=== PATIENT | male | born 1930 | race African-American/Black ===

== ENCOUNTER 2017-10-14 20:14 | Inpatient (IN) | payer MEDICARE, MEDICAID ==
[~2017-10-14] VITALS: Ht 170.2 cm; Wt 63.5 kg
[~2017-10-14 20:14] MED LIST: ACETAMINOPHEN325 M1 ORAL; ADVAIR 250/501 PUFFS INH; ASPIR 8181 MG ORAL; ATROVENT15 M1 NS; B COMPLEX WITH1 EAC2 ORAL; CENTRAL-VITE1 EACH PO; DIFLUCAN100 MG ORAL; DUONEB 0.5-3(2.53 ML HHN; FAMOTIDINE20 MG ORAL; FERROUS SULFAT325 MG ORAL; FLAGYL500 MG ORAL; FLOMAX0.4 MG ORAL; FUROSEMIDE40 MG ORAL; HEPARIN1000 UNIT/ SQ; ISOSORBIDE MONO30 M1 ORAL; METOPROLOL TART50 MG ORAL; NITROGLYCERIN0.4 MG SL; NORVASC5 MG ORAL; PLAVIX75 MG ORAL; POTASSIUM CHLO20 ME1 ORAL; RANITIDINE HCL150 MG ORAL; TOPROL XL25 MG ORAL; VANCOMYCIN250 MG/5 M ORAL; VICODIN 5-5001 EACH ORAL
--- NOTE | 2017-10-14 20:21 | Emergency Room Report ---
History of Present Illness General Chief Complaint: Generalized Weakness Source: Patient (Anita Carter DO) Present Illness HPI Patient presents by paramedics for reports of general weakness Patient himself is somewhat of a poor historian essentially reports feeling weaker than usual over the past 2-3 days patient has history of COPD has mild increased cough denies any active chest pain Patient had mild nausea denies any vomiting or diarrhea Denies any abdominal pain Denies any focal weakness Denies any neck pain or photophobia (Anita Carter DO) Allergies: Coded Allergies: No Known Allergies (Verified , 05/07/09) Patient History Past Medical History: see triage record Pertinent Family History: none Reviewed Nursing Documentation: PMH: Agreed; PSxH: Agreed (Anita Carter DO) Nursing Documentation-PMH Past Medical History: No History, Except For Hx Cardiac Problems: Yes - [place] 4 years ago Hx Hypertension: Yes Hx Asthma: Yes Hx COPD: No - Respitory Failure Hx Cancer: No Hx Gastrointestinal Problems: No Hx Neurological Problems: No Hx Seizures: No - colitis (Anita Carter DO) Review of Systems All Other Systems: negative except mentioned in HPI (Anita Carter DO) Physical Exam Vital Signs Date Time Temp Pulse Resp B/P (MAP) Pulse Ox O2 Delivery O2 Flow Rate FiO2 10/14/17 20:10 100.3 116 20 128/73 95 Nasal Cannula 2.0 100.2 Sp02 EP Interpretation: reviewed, normal General Appearance: no apparent distress Head: normocephalic, atraumatic Eyes: bilateral eye PERRL, bilateral eye EOMI ENT: normal pharynx, dry mucus membranes Neck: full range of motion, supple, thyroid normal Respiratory: no retraction, no accessory muscle use, crackles, wheezing - Bilaterally Cardiovascular #1: regular rate, rhythm, no edema Gastrointestinal: non tender, soft Musculoskeletal: normal inspection Neurologic: alert, oriented x3, responsive Skin: normal color, no rash, warm/dry Lymphatic: no adenopathy (Anita Carter DO) Medical Decision Making Diagnostic Impression: Primary Impression: Episode of generalized weakness Additional Impression: COPD (chronic obstructive pulmonary disease) ER Course Patient was endorsed to me by Dr. Carter. The chest x-ray one view interpreted by me showed normal cardiac size without evident infiltrate. The patient was given antibiotics. I laboratory testing was unremarkable however patient's appear to be continued to be tachypneic.The patient was admitted to the telemetry floor due to prior history of CABG. The patient was discussed with Dr. Jamal Brian for inpatient management due to primary care physician Labs Test 10/14/17 20:30 10/14/17 21:00 White Blood Count 16.3 K/UL (4.8-10.8) Red Blood Count 3.93 M/UL (4.70-6.10) Hemoglobin 11.5 G/DL (14.2-18.0) Hematocrit 35.0 % (42.0-52.0) Mean Corpuscular Volume 89 FL (80-99) Mean Corpuscular Hemoglobin 29.2 PG (27.0-31.0) Mean Corpuscular Hemoglobin Concent 32.9 G/DL (32.0-36.0) Red Cell Distribution Width 12.3 % (11.6-14.8) Platelet Count 197 K/UL (150-450) Mean Platelet Volume 8.1 FL (6.5-10.1) Neutrophils (%) (Auto) 88.4 % (45.0-75.0) Lymphocytes (%) (Auto) 6.1 % (20.0-45.0) Monocytes (%) (Auto) 3.3 % (1.0-10.0) Eosinophils (%) (Auto) 1.6 % (0.0-3.0) Basophils (%) (Auto) 0.5 % (0.0-2.0) Sodium Level 137 MMOL/L (136-145) Potassium Level 4.4 MMOL/L (3.5-5.1) Chloride Level 100 MMOL/L (98-107) Carbon Dioxide Level 31 MMOL/L (21-32) Anion Gap 6 mmol/L (5-15) Blood Urea Nitrogen 24 mg/dL (7-18) Creatinine 1.9 MG/DL (0.55-1.30) Estimat Glomerular Filtration Rate mL/min (>60) Glucose Level 120 MG/DL (74-106) Lactic Acid Level 1.70 mmol/L (0.4-2.0) Calcium Level 9.7 MG/DL (8.5-10.1) Total Bilirubin 0.4 MG/DL (0.2-1.0) Aspartate Amino Transf (AST/SGOT) 20 U/L (15-37) Alanine Aminotransferase (ALT/SGPT) 21 U/L (12-78) Alkaline Phosphatase 63 U/L (46-116) Total Creatine Kinase 270 U/L (26-308) Creatine Kinase MB 1.1 NG/ML (0.0-3.6) Creatine Kinase MB Relative Index 0.4 Troponin I 0.000 ng/mL (0.000-0.056) Pro-B-Type Natriuretic Peptide 779 pg/mL (0-125) Total Protein 8.4 G/DL (6.4-8.2) Albumin 3.3 G/DL (3.4-5.0) Globulin 5.1 g/dL Albumin/Globulin Ratio 0.6 (1.0-2.7) Lipase 109 U/L (73-393) Urine Color Pale yellow Urine Appearance Clear Urine pH 6 (4.5-8.0) Urine Specific [place] 1.005 (1.005-1.035) Urine Protein Negative (NEGATIVE) Urine Glucose (UA) Negative (NEGATIVE) Urine Ketones Negative (NEGATIVE) Urine Occult Blood Negative (NEGATIVE) Urine Nitrite Negative (NEGATIVE) Urine Bilirubin Negative (NEGATIVE) Urine Urobilinogen Normal MG/DL (0.0-1.0) Urine Leukocyte Esterase Negative (NEGATIVE) (Timmy Dave MD) EKG Diagnostic Results Rate: tachycardiac - 115 Rhythm: NSR ST Segments: no acute changes (Timmy Dave MD) Rhythm Strip Diag. Results EP Interpretation: yes Rhythm: NSR, no PVC's, no ectopy (Timmy Dave MD) Chest X-Ray Diagnostic Results Chest X-Ray Diagnostic Results : Chest X-Ray Ordered: Yes # of Views/Limited/Complete: 1 View Indication: Shortness of Breath EP Interpretation: Yes Interpretation: no consolidation, no effusion, no pneumothorax, no acute cardiopulmonary disease Impression: No acute disease Electronically Signed by: Electronically signed by Dr. Timmy Dave M.D. (Timmy Dave MD) Last Vital Signs Date Time Temp Pulse Resp B/P (MAP) Pulse Ox O2 Delivery O2 Flow Rate FiO2 10/14/17 20:10 100.3 116 20 128/73 95 Nasal Cannula 2.0 100.2 (Anita Carter DO) Status: improved (Timmy Dave MD) Disposition: ADMITTED INPATIENT Condition: Serious Anita Carter DO Oct 14, 2017 20:21 Timmy Dave MD Oct 15, 2017 03:03
[2017-10-14] MEDS ORDERED: Albuterol ud Inhalation HHN ONE (20:30)
[2017-10-14 20:43] VITALS: BP 128/73
[2017-10-14 20:53] LABS: HEMOGLOBIN 11.5 G/DL (14.2-18.0); MEAN CORPUSCULAR VOLUME 89 FL (80-99); PLATELET COUNT 197 K/UL (150-450); RED BLOOD COUNT 3.93 M/UL (4.70-6.10); RED CELL DISTRIBUTION WIDTH 12.3 % (11.6-14.8); WHITE BLOOD COUNT 16.3 K/UL (4.8-10.8)
[2017-10-14 20:54] LABS: BASOPHILS % (AUTO) 0.5 % (0.0-2.0); EOSINOPHILS % (AUTO) 1.6 % (0.0-3.0); LYMPHOCYTES % (AUTO) 6.1 % (20.0-45.0); MONOCYTES % (AUTO) 3.3 % (1.0-10.0); NEUTROPHILS % (AUTO) 88.4 % (45.0-75.0)
[2017-10-14 21:07] LABS: ANION GAP 6 mmol/L (5-15); BLOOD UREA NITROGEN 24 mg/dL (7-18); CALCIUM 9.7 MG/DL (8.5-10.1); CARBON DIOXIDE 31 MMOL/L (21-32); CHLORIDE 100 MMOL/L (98-107); CREATININE 1.9 MG/DL (0.55-1.30); POTASSIUM 4.4 MMOL/L (3.5-5.1); SODIUM 137 MMOL/L (136-145)
[2017-10-14 21:15] LABS: APPEARANCE,URINE CLEAR; BILIRUBIN, URINE NEGATIVE (NEGATIVE); COLOR,URINE PALE YELLOW; GLUCOSE, URINE (UA) NEGATIVE (NEGATIVE); KETONES,URINE NEGATIVE (NEGATIVE); LEUKOCYTE ESTERASE ,URINE NEGATIVE (NEGATIVE); NITRITE,URINE NEGATIVE (NEGATIVE); PH,URINE 6 (4.5-8.0); PROTEIN,URINE NEGATIVE (NEGATIVE); UROBILINOGEN,URINE NORMAL MG/DL (0.0-1.0)
[2017-10-14 21:21] LABS: ALANINE AMINOTRANSFERASE 21 U/L (12-78); ALBUMIN 3.3 G/DL (3.4-5.0); ALBUMIN/GLOBULIN RATIO 0.6 (1.0-2.7); ALKALINE PHOSPHATASE 63 U/L (46-116); ASPARTATE AMINO TRANSFERASE 20 U/L (15-37); BILIRUBIN,TOTAL 0.4 MG/DL (0.2-1.0); CKMB 1.1 NG/ML (0.0-3.6); CREATINE KINASE 270 U/L (26-308)
[2017-10-14] MEDS ORDERED: Albuterol/Ipratropium 3ml neb HHN ONE (21:30)
[2017-10-14] MEDS ORDERED: NEURONTIN300 MG ORAL (21:49)
[2017-10-14] MEDS ORDERED: Azithromycin 500 MG in D5W 275 ML IVPB ONE (22:00)
[2017-10-14] MEDS ORDERED: cefTRIAXone 1 GM in NS 55 ML IVPB ONE (22:00)
[2017-10-14 23:15] VITALS: BP 114/70
[2017-10-15] VITALS: BP 128/73
[2017-10-15] MEDS ORDERED: Milk of Magnesia 30ml Ud ORAL PRN (01:15)
[2017-10-15] MEDS: Albuterol/Ipratropium 3ml neb HHN SCH ×6 (02:53→23:24)
[2017-10-15 04:00] VITALS: BP 113/57
[2017-10-15 07:46] LABS: BASOPHILS % (AUTO) 0.3 % (0.0-2.0); EOSINOPHILS % (AUTO) 1.6 % (0.0-3.0); HEMATOCRIT 30.5 % (42.0-52.0); HEMOGLOBIN 10.1 G/DL (14.2-18.0); LYMPHOCYTES % (AUTO) 18.4 % (20.0-45.0); MEAN CORPUSCULAR VOLUME 88 FL (80-99); MONOCYTES % (AUTO) 5.3 % (1.0-10.0); NEUTROPHILS % (AUTO) 74.4 % (45.0-75.0); PLATELET COUNT 189 K/UL (150-450); RED BLOOD COUNT 3.46 M/UL (4.70-6.10); RED CELL DISTRIBUTION WIDTH 12.2 % (11.6-14.8); WHITE BLOOD COUNT 17.9 K/UL (4.8-10.8)
[2017-10-15 08:00] VITALS: BP 118/71
[2017-10-15 08:03] LABS: ALANINE AMINOTRANSFERASE 15 U/L (12-78); ALBUMIN 2.5 G/DL (3.4-5.0); ALBUMIN/GLOBULIN RATIO 0.6 (1.0-2.7); ALKALINE PHOSPHATASE 51 U/L (46-116); ANION GAP 5 mmol/L (5-15); ASPARTATE AMINO TRANSFERASE 17 U/L (15-37); BILIRUBIN,TOTAL 0.4 MG/DL (0.2-1.0); BLOOD UREA NITROGEN 22 mg/dL (7-18); CALCIUM 9.2 MG/DL (8.5-10.1); CARBON DIOXIDE 33 MMOL/L (21-32); CHLORIDE 106 MMOL/L (98-107); CREATININE 1.7 MG/DL (0.55-1.30); POTASSIUM 4.2 MMOL/L (3.5-5.1); SODIUM 143 MMOL/L (136-145)
[2017-10-15] MEDS: Aspirin Baby 81mg ORAL SCH (08:43)
[2017-10-15] MEDS: Metoprolol Tartrate 50mg tab ORAL SCH ×2 (08:44→20:35)
[2017-10-15] MEDS: Imdur 30mg tab ORAL SCH (08:44)
--- NOTE | 2017-10-15 11:10 | Diagnostic Imaging Report ---
Indication: Chest pain Technique: One view of the chest Comparison: For 06/17/2015 Findings: There is some atelectasis at the right lung base. The lungs and pleural spaces are otherwise clear. Heart size is normal. There is evidence of prior CABG.. Resolution of previously demonstrated left pleural effusion and basilar parenchymal disease Impression: Right basilar atelectasis No acute process otherwise
[2017-10-15 12:00] VITALS: BP 100/67
[2017-10-15] MEDS ORDERED: Norco 5mg/325mg tab ORAL PRN (12:15)
[2017-10-15 15:42] VITALS: BP 100/61
[2017-10-15 20:00] VITALS: BP 111/71
[2017-10-15] MEDS: Tamsulosin 0.4mg cap ORAL SCH (20:35)
[2017-10-15] MEDS: Heparin 5000 units/ml inj SUBQ SCH (20:36)
[2017-10-15] MEDS: cefTRIAXone 1 GM in D5W 110 ML IVPB SCH (21:38)
[2017-10-15] MEDS ORDERED: cefTRIAXone 1 GM in D5W 55 ML IVPB SCH (22:00)
[2017-10-15] MEDS: Azithromycin 500 MG in D5W 275 ML IV SCH (22:39)
[2017-10-16] VITALS: BP 107/68
[2017-10-16] MEDS: Albuterol/Ipratropium 3ml neb HHN SCH ×7 (03:00→23:31)
[2017-10-16 04:00] VITALS: BP 118/68
--- NOTE | 2017-10-16 04:00 | Progress Note ---
DATE: 10/15/2017 CARDIOLOGY PROGRESS NOTE SUBJECTIVE: The patient feels slightly better, less congested, and short of breath, but definitely not at his baseline. His appetite is fair. He is tolerating his diet. OBJECTIVE: VITAL SIGNS: Blood pressure 139/76, pulse 75, respiratory rate 18, afebrile, and room air oxygen saturation at 96%. HEENT: Conjunctivae are pink. Oropharynx clear. No thrush. NECK: Supple. No jugular venous distention. LUNGS: Coarse breath sounds. Scattered rhonchi. CARDIAC: Regular rhythm and rate. Normal S1, S2 with a fourth heart sound. ABDOMEN: Soft, nontender. EXTREMITIES: No edema. LABORATORY AND DIAGNOSTIC DATA: White count 17.9, hemoglobin 10.1, sodium 143, potassium 4.2, bicarbonate 33, BUN 22, and creatinine 1.7. Albumin 2.5. Chest x-ray last evening was reviewed again and notable for right basilar atelectasis. Sputum cultures pending. IMPRESSION: 1. Probable pneumonia. 2. Sepsis. 3. Chronic obstructive pulmonary disease exacerbation. 4. Hypertensive heart disease. 5. Acute on chronic diastolic congestive heart failure. 6. Leukocytosis. PLAN: 1. Antimicrobials. 2. Await sputum cultures. 3. Bronchodilators. 4. Antiplatelet therapy. 5. DVT prophylaxis. 6. Continue nitrates and beta-shannon. 7. Reassess for diuresis. 8. Repeat chest radiograph. Jamal Brian M.D. DR: ELKE JOB#: [id number] CC:
--- NOTE | 2017-10-16 04:30 | History and Physical Report ---
DATE OF ADMISSION: 10/14/2017 CARDIOLOGY EVALUATION CONSULTING PHYSICIAN: Jamal Brian M.D. REQUESTING PHYSICIAN: Chaim Yeung M.D. REASON FOR ADMISSION: Sepsis and respiratory distress in the setting of ischemic cardiomyopathy. HISTORY OF PRESENT ILLNESS: This is an 87-year-old male, known to me from prior care. He has known history of ischemic heart disease with prior CABG and history of nonsustained ventricular arrhythmias. He also has known history of COPD. This afternoon, he developed worsening cough, congestion, shortness of breath, and fevers. He was quite well up until this afternoon. In fact, he was in my office last week and was doing very well with no complaints. He was seen in the emergency room. Concern was raised over an elevated white count, fevers, and abnormal chest radiograph as well as abnormal chest sounds prompting hospitalization. PAST MEDICAL HISTORY: Cervical disk disease, osteoarthritis, prostatic hypertrophy, coronary artery disease with prior CABG, nonsustained ventricular ectopy, hypertensive heart disease, COPD, vitamin D deficiency. ALLERGIES: None. FAMILY HISTORY: Noncontributory. SOCIAL HISTORY: Distant smoker. No alcohol or substance abuse. MEDICATIONS: Medications prior to admission, reviewed and reconciled. REVIEW OF SYSTEMS: There is no loss of vision. He is hard of hearing. No history of diabetes or thyroid disorder. No history of seizure or stroke. He is on anti-lipid drugs. He has history of prostatic hypertrophy, but voids well with the use of tamsulosin. He has not noted any change in bowel habits, but there is prior history of C. difficile colitis. He has been on steroids in the past for COPD exacerbations, most recently is earlier this year. His most recent echocardiogram revealed mild left ventricular dysfunction with ejection fraction of 40% to 45% with mild degenerative valve disease. There is history of nonsustained ventricular ectopy. He has not had any leg swelling but has had shortness of breath. No chest pain. There is no history of blood clots in the legs. PHYSICAL EXAMINATION: VITAL SIGNS: Blood pressure 128/72, pulse 116, respiratory rate 20, oxygen saturation 96% on room air, temperature 100.1. HEENT: Temporal wasting. Pale conjunctivae. Arcus senilis. Oropharynx clear. Mucous membranes moist. No exudate. No thrush. NECK: Supple. Jugular venous pressure is slightly elevated. There is some accessory muscle use. Kyphoscoliosis. LUNGS: With diminished breath sounds. Scattered rhonchi. Few expiratory wheezes. CARDIAC: Regular rhythm. Rapid rate. Normal S1, S2 with a fourth heart sound. ABDOMEN: Soft, nontender. EXTREMITIES: No edema. LABORATORY AND DIAGNOSTIC DATA: Chest x-ray, left basilar atelectasis and possible infiltrate. White count 16.2, hemoglobin 11.5. Sodium 137, potassium 4.4, bicarbonate 31, BUN 24, creatinine 1.9, albumin 3.3, glucose 120. Troponin negative. IMPRESSION: 1. Sepsis, probable pneumonia. 2. COPD exacerbation. 3. Acute bronchospasm. 4. Acute on chronic kidney injury due to hypovolemia. 5. Mild protein-calorie malnutrition. 6. Mild anemia. 7. Ischemic cardiomyopathy. 8. Stable angina. 9. Chronic systolic and diastolic congestive heart failure. 10. History of C. difficile colitis. 11. History of ventricular arrhythmias. PLAN: 1. Cardiac monitoring. 2. Panculture. 3. Empiric antibiotics. 4. Inhaled bronchodilators. 5. Consider steroids. 6. Maintain dual anti-platelet therapy, beta-shannon, and nitrate. 7. Check lipid panel once metabolically stabilized. 8. DVT prophylaxis. 9. Check C. difficile if any signs of loose stool. Jamal Brian M.D. DR: Jonathon JOB#: [id number] CC: ALEX
[2017-10-16 07:42] LABS: BASOPHILS % (AUTO) 0.8 % (0.0-2.0); EOSINOPHILS % (AUTO) 4.2 % (0.0-3.0); HEMATOCRIT 29.3 % (42.0-52.0); HEMOGLOBIN 9.7 G/DL (14.2-18.0); MEAN CORPUSCULAR VOLUME 89 FL (80-99); MONOCYTES % (AUTO) 5.9 % (1.0-10.0); NEUTROPHILS % (AUTO) 68.2 % (45.0-75.0); PLATELET COUNT 189 K/UL (150-450); RED BLOOD COUNT 3.29 M/UL (4.70-6.10); RED CELL DISTRIBUTION WIDTH 12.4 % (11.6-14.8); WHITE BLOOD COUNT 10.6 K/UL (4.8-10.8)
[2017-10-16 08:00] VITALS: BP 100/62
[2017-10-16 08:32] LABS: ALANINE AMINOTRANSFERASE 20 U/L (12-78); ALBUMIN 2.6 G/DL (3.4-5.0); ALBUMIN/GLOBULIN RATIO 0.6 (1.0-2.7); ALKALINE PHOSPHATASE 50 U/L (46-116); ANION GAP 7 mmol/L (5-15); ASPARTATE AMINO TRANSFERASE 23 U/L (15-37); BILIRUBIN,TOTAL 0.3 MG/DL (0.2-1.0); BLOOD UREA NITROGEN 19 mg/dL (7-18); CALCIUM 9.2 MG/DL (8.5-10.1); CARBON DIOXIDE 28 MMOL/L (21-32); CHLORIDE 103 MMOL/L (98-107); CREATININE 1.6 MG/DL (0.55-1.30); POTASSIUM 3.9 MMOL/L (3.5-5.1); SODIUM 138 MMOL/L (136-145)
[2017-10-16] MEDS: Aspirin Baby 81mg ORAL SCH (08:53)
[2017-10-16] MEDS: Metoprolol Tartrate 50mg tab ORAL SCH ×2 (08:53→20:31)
[2017-10-16] MEDS: Imdur 30mg tab ORAL SCH (08:56)
[2017-10-16] MEDS: Heparin 5000 units/ml inj SUBQ SCH ×2 (08:58→20:31)
[2017-10-16] MEDS: Dorzolamide 2% 10ml Btl BOTH EYES SCH ×2 (11:24→17:35)
[2017-10-16 12:00] VITALS: BP 100/57
--- NOTE | 2017-10-16 12:05 | Diagnostic Imaging Report ---
Indication: Cough Technique: 2 views of the chest Comparison: One view chest dated 10/14/2017 Findings: Is slightly suboptimal inspiration with some atelectasis at the left lung base. Lungs and pleural spaces are otherwise clear. Upper limits normal heart size. Tortuous calcite aorta. Median sternotomy sutures are noted. Impression: No acute process. Findings as noted
[2017-10-16 16:00] VITALS: BP 111/56
[2017-10-16 20:00] VITALS: BP 116/74
[2017-10-16] MEDS: TRAVATAN Z 0.004% BOTH EYES SCH (20:30)
[2017-10-16] MEDS: Tamsulosin 0.4mg cap ORAL SCH (20:31)
[2017-10-16] MEDS: cefTRIAXone 1 GM in D5W 110 ML IVPB SCH (22:26)
[2017-10-16] MEDS: Azithromycin 500 MG in D5W 275 ML IV SCH (23:14)
[2017-10-17] VITALS: BP 128/71
--- NOTE | 2017-10-17 01:15 | Progress Note ---
DATE: 10/16/2017 CARDIOLOGY PROGRESS NOTE SUBJECTIVE: The patient feels better. Less short of breath. Less congestion. He has defervesced. White count is improving. Monitored rhythm sinus with atrial ectopy. OBJECTIVE: VITAL SIGNS: Blood pressure 116/74, pulse 84, respirations 20, and room air oxygen 96%. LUNGS: Few rhonchi. Coarse breath sounds. HEART: Regular rhythm and rate. Normal S1, S2. ABDOMEN: Soft. EXTREMITIES: No edema. LABORATORY DATA: Sputum culture, normal krista. White count down to 10.6, hemoglobin 9.7. Potassium 3.9. Albumin 2.6. Pro-natriuretic peptide 940. BUN 19, creatinine 1.6. IMPRESSION: 1. Community-acquired pneumonia. 2. Chronic obstructive pulmonary disease exacerbation. 3. Acute on chronic diastolic and systolic congestive heart failure. 4. Ischemic cardiomyopathy. 5. Stable angina. 6. Moderate protein-calorie malnutrition. 7. Acute on chronic kidney injury, improved. PLAN: 1. Adjust IV fluids. 2. Continue antimicrobials. 3. Respiratory hygiene. 4. Bronchodilators. 5. Avoid steroids. 6. DVT prophylaxis. 7. Anti-platelet therapy. 8. Reassess for diuresis based on clinical parameters. Jamal Brian M.D. DR: SKINNY JOB#: [id number] CC:
[2017-10-17] MEDS: Albuterol/Ipratropium 3ml neb HHN SCH ×6 (03:36→23:12)
[2017-10-17 04:00] VITALS: BP 116/58
[2017-10-17 08:00] VITALS: BP 119/60
[2017-10-17] MEDS: Metoprolol Tartrate 50mg tab ORAL SCH ×2 (08:56→21:48)
[2017-10-17] MEDS: Imdur 30mg tab ORAL SCH (08:56)
[2017-10-17] MEDS: Aspirin Baby 81mg ORAL SCH (08:56)
[2017-10-17] MEDS: Heparin 5000 units/ml inj SUBQ SCH ×2 (08:57→21:48)
[2017-10-17] MEDS: Dorzolamide 2% 10ml Btl BOTH EYES SCH ×3 (08:57→18:31)
[2017-10-17 12:00] VITALS: BP 99/62
[2017-10-17 15:26] VITALS: BP 116/75
[2017-10-17 20:00] VITALS: BP 135/72
[2017-10-17] MEDS: Tamsulosin 0.4mg cap ORAL SCH (21:47)
[2017-10-17] MEDS: TRAVATAN Z 0.004% BOTH EYES SCH (21:49)
[2017-10-17] MEDS: cefTRIAXone 1 GM in D5W 110 ML IVPB SCH (21:53)
--- NOTE | 2017-10-17 22:29 | Progress Note ---
DATE: 10/17/2017 CARDIOLOGY PROGRESS NOTE SUBJECTIVE: The patient feels better. Less short of breath. Ambulation is around his room, but gets fatigued down the hallway still. Cough and secretions have decreased. Sputum cultures are negative. OBJECTIVE: VITAL SIGNS: Afebrile, blood pressure 116/75, pulse 75, respirations 20, and room air oxygen 97%. LUNGS: Coarse breath sounds. No wheezing. HEART: Regular rhythm and rate. Normal S1, S2. ABDOMEN: Soft. EXTREMITIES: No edema. IMPRESSION: 1. Recovering pneumonia. 2. Resolving chronic obstructive pulmonary disease exacerbation. 3. Acute on chronic diastolic and systolic congestive heart failure compensated. 4. Ischemic cardiomyopathy with stable angina. 5. Moderate protein-calorie malnutrition. 6. Acute on chronic kidney injury, improving. PLAN: 1. Discontinue intravenous fluids. 2. Continue antimicrobials and respiratory hygiene. 3. Physical and occupational therapy. 4. Continue anti-platelet therapy. 5. Off steroids. 6. No diuretics needed at this time. Jamal Brian M.D. DR: KIA JOB#: [id number] CC:
[2017-10-17] MEDS: Azithromycin 500 MG in D5W 275 ML IV SCH (23:46)
[2017-10-18 00:16] VITALS: BP 117/72
[2017-10-18] MEDS ORDERED: Milk of Magnesia 30ml Ud ORAL PRN (01:15)
[2017-10-18] MEDS: Albuterol/Ipratropium 3ml neb HHN SCH ×6 (03:00→22:55)
[2017-10-18 04:00] VITALS: BP 111/69
[2017-10-18 06:12] LABS: BASOPHILS % (AUTO) 0.9 % (0.0-2.0); EOSINOPHILS % (AUTO) 6.3 % (0.0-3.0); HEMATOCRIT 29.9 % (42.0-52.0); HEMOGLOBIN 9.7 G/DL (14.2-18.0); LYMPHOCYTES % (AUTO) 24.5 % (20.0-45.0); MEAN CORPUSCULAR VOLUME 90 FL (80-99); MONOCYTES % (AUTO) 6.3 % (1.0-10.0); NEUTROPHILS % (AUTO) 61.9 % (45.0-75.0); PLATELET COUNT 214 K/UL (150-450); RED BLOOD COUNT 3.32 M/UL (4.70-6.10); RED CELL DISTRIBUTION WIDTH 12.7 % (11.6-14.8); WHITE BLOOD COUNT 8.1 K/UL (4.8-10.8)
[2017-10-18 06:42] LABS: ALANINE AMINOTRANSFERASE 21 U/L (12-78); ALBUMIN 2.6 G/DL (3.4-5.0); ALBUMIN/GLOBULIN RATIO 0.6 (1.0-2.7); ALKALINE PHOSPHATASE 52 U/L (46-116); ANION GAP 9 mmol/L (5-15); ASPARTATE AMINO TRANSFERASE 19 U/L (15-37); BILIRUBIN,TOTAL 0.1 MG/DL (0.2-1.0); BLOOD UREA NITROGEN 19 mg/dL (7-18); CALCIUM 9.4 MG/DL (8.5-10.1); CARBON DIOXIDE 27 MMOL/L (21-32); CHLORIDE 102 MMOL/L (98-107); CREATININE 1.7 MG/DL (0.55-1.30); POTASSIUM 4.2 MMOL/L (3.5-5.1); SODIUM 138 MMOL/L (136-145)
[2017-10-18] MEDS: Aspirin Baby 81mg ORAL SCH (08:39)
[2017-10-18] MEDS: Metoprolol Tartrate 50mg tab ORAL SCH ×2 (08:44→20:24)
[2017-10-18] MEDS: Imdur 30mg tab ORAL SCH (08:44)
[2017-10-18] MEDS: Heparin 5000 units/ml inj SUBQ SCH ×2 (08:45→20:23)
[2017-10-18] MEDS: Dorzolamide 2% 10ml Btl BOTH EYES SCH ×3 (08:51→17:18)
[2017-10-18] MEDS ORDERED: Norco 5mg/325mg tab ORAL PRN (09:00)
[2017-10-18] MEDS ORDERED: Tubing IV Secondary IV ONE ×2 (10:35→10:47)
[2017-10-18] MEDS ORDERED: NS 275ml ONE ×2 (10:35→10:47)
[2017-10-18 11:55] VITALS: BP 124/59
[2017-10-18 16:30] VITALS: BP 111/58
[2017-10-18 20:00] VITALS: BP 146/72
[2017-10-18] MEDS ORDERED: Tamsulosin 0.4mg cap ORAL SCH (21:00)
[2017-10-18] MEDS ORDERED: cefTRIAXone 1 GM in D5W 110 ML IVPB SCH (22:00)
[2017-10-18] MEDS: Azithromycin 500 MG in D5W 275 ML IV SCH (23:22)
[2017-10-19] VITALS: BP 119/74
[2017-10-19] MEDS: Albuterol/Ipratropium 3ml neb HHN SCH ×4 (03:12→14:48)
--- NOTE | 2017-10-19 03:15 | Progress Note ---
DATE: 10/18/2017 CARDIOLOGY PROGRESS NOTE SUBJECTIVE: The patient continues to feel better. Slight cough. No congestion. No chest pain. Ambulating more without shortness of breath. OBJECTIVE: VITAL SIGNS: Blood pressure is 146/72, pulse 71, respiratory rate 18, afebrile, and room air oxygen 95% to 99%. LUNGS: Few rhonchi. CARDIAC: Regular rhythm and rate. Normal S1, S2. No accessory muscle use. ABDOMEN: Soft. No edema. LABORATORY DATA: Cultures remained negative. Labs reviewed, notable for BUN 19, creatinine 1.7, potassium 4.2. Albumin 2.6, and Pro-natriuretic peptide 1151. IMPRESSION: 1. Healthcare-acquired pneumonia. 2. Chronic obstructive pulmonary disease exacerbation. 3. Acute on chronic diastolic congestive heart failure. 4. Ischemic cardiomyopathy. 5. Hypomagnesemia. 6. Hypertensive heart disease. 7. Moderate protein-calorie malnutrition. PLAN: 1. Clinically improved on current regimen. 2. Anticipate oral antibiotics in the next 24 to 48 hours. 3. Protein supplement. 4. Diuresis based on clinical parameters. Jamal Brian M.D. DR: SKINNY JOB#: [id number] CC:
[2017-10-19 04:00] VITALS: BP 109/72
[2017-10-19 08:00] VITALS: BP 117/87
[2017-10-19] MEDS: Heparin 5000 units/ml inj SUBQ SCH (08:11)
[2017-10-19] MEDS: Imdur 30mg tab ORAL SCH (08:12)
[2017-10-19] MEDS: Aspirin Baby 81mg ORAL SCH (08:12)
[2017-10-19] MEDS: Metoprolol Tartrate 50mg tab ORAL SCH (08:13)
[2017-10-19] MEDS: Dorzolamide 2% 10ml Btl BOTH EYES SCH ×2 (08:13→12:06)
[2017-10-19 11:56] VITALS: BP 107/65
[2017-10-19] MEDS ORDERED: cefTRIAXone 1 GM in D5W 110 ML IVPB SCH (15:45)
--- NOTE | 2017-10-19 22:45 | Progress Note ---
DATE: 10/19/2017 CARDIOLOGY PROGRESS NOTE SUBJECTIVE: The patient feels better. No chest pain. No shortness of breath with ambulation. Minimal cough. No sputum production. Cultures remain negative. OBJECTIVE: VITAL SIGNS: Oxygen saturation 99% on room air, blood pressure 107/65, heart rate 74, respiratory rate 18. RESPIRATORY: Coarse breath sounds. No wheezing or rales. CARDIAC: Regular rhythm and rate. Normal S1, S2 with a fourth heart sound. ABDOMEN: Soft, nontender. EXTREMITIES: No edema. NEUROLOGIC: No focal neurologic deficits. IMPRESSION: 1. Community-acquired pneumonia, resolved. 2. COPD exacerbation, recovered. 3. Acute on chronic diastolic congestive heart failure, clinically compensated. 4. Hypertensive heart disease with controlled blood pressure. 5. Ischemic cardiomyopathy with history of CABG and now stable angina. 6. Moderate protein-calorie malnutrition, on oral supplements. PLAN: 1. Off steroids. 2. Complete IV antibiotics today. No additional therapy planned. 3. Maintain inhaled bronchodilators as an outpatient. 4. Discharge plan with outpatient followup today. Jamal Brian M.D. DR: Jonathon JOB#: [id number] CC:
--- NOTE | 2017-10-20 09:30 | Discharge Summary ---
Discharge Summary Discharge Summary _ DATE OF ADMISSION: 10/14/2017 DATE OF DISCHARGE: 10/19/2017 REASON FOR ADMISSION: 87 years old male with past medical history significant for coronary artery disease, status post CABG, ischemic hypertensive heart disease, benign prostatic hypertrophy, osteoarthritis, COPD, vitamin D deficiency, nonsustained ventricular ectopy, cervical disc disease, presented to emergency department with complaint of worsening cough , congestion , shortness of breath and fever. Upon evaluation in emergency room patient found to have low-grade fever of 100.3 , was tachycardiac with heart rate 116 WBC 16.3. BUN 24 creatinine 1.9, mild anemia with hemoglobin 11.5 hematocrit 35 . Troponin was negative . EKG revealed sinus tachycardia, no acute ischemic changes . Urinalysis was negative for evidence of UTI. Chest x-ray revealed right base atelectasis , possible infiltrate. Patient admitted with diagnoses of sepsis, probable pneumonia, ischemic cardiomyopathy, COPD exacerbation, acute bronchospasm, acute on chronic kidney injury secondary to hypovolemia , heart failure, history of ventricular arrhythmia, protein calorie malnutrition, mild anemia ,history of C. difficile colitis. HOSPITAL COURSE: Patient admitted to cardiac monitored floor. Patient pancultured and started on empiric antibiotic. Supplemental oxygen titrated to keep pulse oximetry above 92%, aggressive pulmonary toilet with bronchodilator around the clock and as needed was provided. Steroids initially were considered but were not started given acute kidney injury. Patient started on dual antiplatelet therapy with aspirin and Plavix, beta shannon and nitrate were continued. DVT prophylaxis provided. Blood pressure was stable with current antihypertensive regimen. Patient initially started on gentle IV fluids. Renal parameters and electrolytes were closely monitored. Electrolytes were replaced as needed. Nephrotoxins were avoided. IV fluids soon stopped Prior to discharge, BUN down to 19 .creatinine down to 1.7. Need for diuresis was periodically assess with close monitoring of volumes and cardiorenal parameters Blood culture were negative, sputum culture negative. Patient was completed IV antibiotics while in the hospital, no need to continue antibiotics upon discharge. Follow-up chest x-ray revealed no acute cardiopulmonary pathology. Flomax. was continued, no difficulty with urination. Pain management was addressed, and pain was controlled. Bowel regimen instituted. Hemoglobin and hematocrit were closely monitored with goal to keep hemoglobin above 7 ,no need for transfusion .Outpatient follow-up with hemoglobin and hematocrit. Patient clinically improved. Leukocytosis resolved. Afebrile. Stable respiratory status, no wheezing, no congestion, pulse oximetry stable in room air. Patient was stable for discharge home FINAL DIAGNOSES: Sepsis Community-acquired pneumonia COPD exacerbation Acute on chronic kidney injury secondary to hypovolemia Acute on chronic systolic and diastolic heart failure Hypertensive heart disease Ischemic cardiomyopathy Moderate protein calorie malnutrition Stable angina Anemia DISCHARGE MEDICATIONS: See Medication Reconciliation list. DISCHARGE INSTRUCTIONS: Patient was discharged home. Follow up with primary care provider in one week. I have been assigned to dictate discharge summary for this account. I was not involved in the patient's management. Maggie Eid NP Oct 20, 2017 09:30
== END 2017-10-19 16:00 | disposition home or self-care (01) | DRG 871 ==
LOC: EDBD 20:14 → EMR 20:20 → 2E 20:59 → EDBEDREQ 21:50 → EDBEDREQSVC 21:54 → 2E 22:10 → EDBEDREQ 22:41 → 3E 10-17 23:35
DX: A41.9 Sepsis, unspecified organism (principal); J18.9 Pneumonia, unspecified organism; I50.43 Acute on chronic combined systolic (congestive) and diastolic (congestive) heart failure; J44.1 Chronic obstructive pulmonary disease with (acute) exacerbation; N17.9 Acute kidney failure, unspecified; I13.0 Hypertensive heart and chronic kidney disease with heart failure and stage 1 through stage 4 chronic kidney disease, or unspecified chronic kidney disease; E44.0 Moderate protein-calorie malnutrition; I25.5 Ischemic cardiomyopathy; Z95.1 Presence of aortocoronary bypass graft; I20.8 Other forms of angina pectoris; M19.90 Unspecified osteoarthritis, unspecified site; N40.0 Benign prostatic hyperplasia without lower urinary tract symptoms; Z87.891 Personal history of nicotine dependence; N18.9 Chronic kidney disease, unspecified; I50.9 Heart failure, unspecified; E86.1 Hypovolemia; D64.9 Anemia, unspecified
CPT/HCPCS: 36415; 71045; 71046; 80053; 81003; 82550; 82553; 83605; 83690; 83735; 83880; 84443; 84484; 85025; 87040; 87070; 87205; 87324; 94640; 99285; J7620